=== PATIENT | male | born 1970 | race Caucasian/White ===

== ENCOUNTER 2018-05-17 12:56 | Emergency (ER) | payer SELFPAY ==
[2018-05-17] MEDS ORDERED: Albuterol/Ipratropium 3.0-0.5 MG/3 ML Neb Soln NEB ONE (13:12)
--- NOTE | 2018-05-17 14:10 | CR ---
Chest: Two views of the chest were obtained. Comparison: No prior chest x-ray. Heart size is normal. Slight tortuosity of the thoracic aorta is seen. Lungs are clear with no acute parenchymal change. Bony structures appear within normal limits for the patient's age. Impression: 1. Nothing acute is seen on two-view chest x-ray. Diagnostic code #1
--- NOTE | 2018-05-17 14:36 | EDM.PDOC ---
ED HPI GENERAL MEDICAL PROBLEM - General Chief Complaint: Respiratory Problem Stated Complaint: CHEST PAIN AND SOB Time Seen by Provider: 05/17/18 13:08 Source of Information: Reports: Patient History Limitations: Reports: No Limitations - History of Present Illness INITIAL COMMENTS - FREE TEXT/NARRATIVE: The patient presents with a cough, shortness of breath and chest tightness. He denies any fever, chills or runny nose. He also had some abdominal pain a couple days ago. He does smoke a couple packs per day. He has no nausea or vomiting. He denies swelling in his legs and pain. He has no history of OK, DVT or PE. This has been going on for a few months. Onset: Gradual Duration: Week(s): (Months) Location: Reports: Chest Quality: Reports: Other (Tightness) Severity: Moderate Improves with: Reports: None Worsens with: Reports: None Associated Symptoms: Reports: Chest Pain, Cough, Shortness of Breath. Denies: Fever/Chills, Headaches, Nausea/Vomiting - Related Data Allergies Allergy/AdvReac Type Severity Reaction Status Date / Time lorazepam [From Ativan] Allergy Hyperactivi Verified 05/17/18 13:07 ty salmon oil Allergy Rash Verified 05/17/18 13:07 Home Meds: Home Meds Albuterol [Proventil HFA] 2 puff INH Q4H PRN #1 inhaler 05/17/18 [Rx] Esomeprazole Magnesium [Nexium] 20 mg PO DAILY 05/17/18 [History] Naproxen Sodium [Aleve] 220 mg PO ASDIRECTED PRN 05/17/18 [History] predniSONE [Prednisone] 40 mg PO DAILY #10 tablet 05/17/18 [Rx] Past Medical History Cardiovascular History: Reports: SOB on Exertion Other Cardiovascular History: stress test, which was negative Respiratory History: Reports: SOB Other Respiratory History: smoker Gastrointestinal History: Reports: GERD Musculoskeletal History: Reports: Arthritis Psychiatric History: Reports: Anxiety Social & Family History - Family History Family Medical History: Noncontributory - Tobacco Use Smoking Status *Q: Current Every Day Smoker Years of Tobacco use: 25 Packs/Tins Daily: 1 - Caffeine Use Caffeine Use: Reports: Soda, Tea - Recreational Drug Use Recreational Drug Use: No ED ROS GENERAL - Review of Systems Review Of Systems: See Below Constitutional: Reports: No Symptoms HEENT: Reports: No Symptoms Respiratory: Reports: Shortness of Breath, Cough Cardiovascular: Reports: Chest Pain Endocrine: Reports: No Symptoms GI/Abdominal: Reports: No Symptoms : Reports: No Symptoms Musculoskeletal: Reports: No Symptoms ED EXAM, GENERAL - Physical Exam Exam: See Below Exam Limited By: No Limitations General Appearance: Alert, No Apparent Distress Ears: Normal External Exam Nose: Normal Inspection Head: Atraumatic, Normocephalic Neck: Normal Inspection Respiratory/Chest: No Respiratory Distress, Decreased Breath Sounds, Wheezing Cardiovascular: Regular Rate, Rhythm, No Edema, No Murmur GI/Abdominal: Soft, Non-Tender, No Organomegaly, No Mass Back Exam: Normal Inspection Extremities: Normal Inspection EKG INTERPRETATION EKG Date: 05/17/18 Time: 13:25 Rhythm: NSR Rate (Beats/Min): 81 [place]: Normal P-Wave: Present QRS: Normal ST-T: Normal QT: Normal EKG Interpretation Comments: Q waves in the anterior leads Course - Vital Signs Last Recorded V/S: Last Vital Signs Temp 97.7 F 05/17/18 12:58 Pulse 77 05/17/18 12:58 Resp 18 05/17/18 12:58 BP 145/86 H 05/17/18 12:58 Pulse Ox 99 05/17/18 13:21 - Orders/Labs/Meds Orders: Active Orders 24 hr Category Date Time Status Cardiac Monitoring [RC] . DIRECTED Care 05/17/18 13:12 Active EKG Documentation Completion [RC] STAT Care 05/17/18 13:12 Active RT Aerosol Therapy [RC] ASDIRECTED Care 05/17/18 13:13 Active Labs: Laboratory Tests 05/17/18 05/17/18 05/17/18 Range/Units 13:25 13:25 13:25 WBC 8.31 (4.23-9.07) K/mm3 RBC 5.61 (4.63-6.08) M/mm3 Hgb 16.0 (13.7-17.5) gm/L Hct 46.7 (40.1-51.0) % MCV 83.2 (79.0-92.2) fl MCH 28.5 (25.7-32.2) pg MCHC 34.3 (32.2-35.5) g/dl RDW Std Deviation 44.2 H (35.1-43.9) fL Plt Count 302 (163-337) K/mm3 MPV 9.4 (9.4-12.3) fl Neut % (Auto) 60.6 (34.0-67.9) % Lymph % (Auto) 27.0 (21.8-53.1) % [place] % (Auto) 9.4 (5.3-12.2) % Eos % (Auto) 2.4 (0.8-7.0) Baso % (Auto) 0.2 (0.1-1.2) % Neut # (Auto) 5.04 (1.78-5.38) K/mm3 Lymph # (Auto) 2.24 (1.32-3.57) K/mm3 [place] # (Auto) 0.78 (0.30-0.82) K/mm3 Eos # (Auto) 0.20 (0.04-0.54) K/mm3 Baso # (Auto) 0.02 (0.01-0.08) K/mm3 D-Dimer, Quantitative < 0.19 L (0.19-0.50) mg/L Sodium 139 (136-145) mEq/L Potassium 4.0 (3.5-5.1) mEq/L Chloride 104 (98-107) mEq/L Carbon Dioxide 22 (21-32) mEq/L Anion Gap 17.0 H (5-15) BUN 17 (7-18) mg/dL Creatinine 0.9 (0.7-1.3) mg/dL Est Cr Clr Drug Dosing 119.24 mL/min Estimated GFR (MDRD) > 60 (>60) mL/min BUN/Creatinine Ratio 18.9 H (14-18) Glucose 96 (74-106) mg/dL Calcium 10.6 H (8.5-10.1) mg/dL Total Bilirubin 0.7 (0.2-1.0) mg/dL AST 19 (15-37) U/L ALT 28 (16-63) U/L Alkaline Phosphatase 53 (46-116) U/L Troponin I < 0.017 (0.00-0.056) ng/mL C-Reactive Protein 0.9 (<1.0) mg/dL Total Protein 7.8 (6.4-8.2) g/dl Albumin 4.1 (3.4-5.0) g/dl Globulin 3.7 gm/dL Albumin/Globulin Ratio 1.1 (1-2) Meds: Medications Discontinued Medications Generic Name Dose Route Start Last Admin Trade Name Tracy PRN Reason Stop Dose Admin Albuterol/Ipratropium 3 ml 05/17/18 13:12 05/17/18 13:19 Duoneb 3.0-0.5 Mg/3 Ml NEB 05/17/18 13:13 3 ml ONETIME ONE Administration - Re-Assessments/Exams Free Text/Narrative Re-Assessment/Exam: 05/17/18 14:48 I ordered a duoneb, EKG, CXR and labs. His EKG shows a NSR with no acute changes. His CXR shows nothing acute. His CBC looks good. His D-dimer was negative. His anion gap was elevated at 17. His troponin is negative. Departure - Departure Time of Disposition: 14:55 Disposition: Home, Self-Care 01 Condition: Good Clinical Impression: Bronchitis Reactive airway disease Qualifiers: Asthma severity: mild Asthma persistence: intermittent Asthma complication type : with acute exacerbation Qualified Code(s): J45.21 - Mild intermittent asthma with (acute) exacerbation - Discharge Information *PRESCRIPTION DRUG MONITORING PROGRAM REVIEWED*: No *COPY OF PRESCRIPTION DRUG MONITORING REPORT IN PATIENT NANCY: No Prescriptions: Albuterol [Proventil HFA] 2 puff INH Q4H PRN #1 inhaler PRN Reason: Shortness Of Breath predniSONE [Prednisone] 40 mg PO DAILY #10 tablet Referrals: PCP,None [Primary Care Provider] - Roxana Boogie PA [Physician Chair Installer] - 1 Week Forms: ED Department Discharge Additional Instructions: Take prednisone 40mg daily for 5 days. Use the inhaler 2 puffs every 6 hours as needed for shortness of breath. Please return if you are worse. - My Orders Last 24 Hours: My Active Orders 05/17/18 13:12 Cardiac Monitoring [RC] . DIRECTED EKG Documentation Completion [RC] STAT 05/17/18 13:13 RT Aerosol Therapy [RC] ASDIRECTED - Assessment/Plan Last 24 Hours: My Active Orders 05/17/18 13:12 Cardiac Monitoring [RC] . DIRECTED EKG Documentation Completion [RC] STAT 05/17/18 13:13 RT Aerosol Therapy [RC] ASDIRECTED
== END 2018-05-17 15:05 | disposition home or self-care (01) ==
LOC: JD.ED 12:56
DX: J45.21 Mild intermittent asthma with (acute) exacerbation (principal); F17.210 Nicotine dependence, cigarettes, uncomplicated; K21.9 Gastro-esophageal reflux disease without esophagitis; F41.9 Anxiety disorder, unspecified; Z79.899 Other long term (current) drug therapy; Z88.8 Allergy status to other drugs, medicaments and biological substances; Z91.018 Allergy to other foods
CPT/HCPCS: 36415; 71046; 71046-26; 80053; 84484; 85025; 85379; 86140; 87804; 93005; 93010; 94640; 99283; 99285-25; J7620-GY

== ENCOUNTER 2018-09-01 15:00 | Emergency (ER) | payer BC ==
--- NOTE | 2018-09-01 16:06 | EDM.PDOC ---
ED HPI GENERAL MEDICAL PROBLEM - General Chief Complaint: Lower Extremity Injury/Pain Stated Complaint: KNEE PAIN Time Seen by Provider: 09/01/18 15:12 Source of Information: Reports: Patient History Limitations: Reports: No Limitations - History of Present Illness INITIAL COMMENTS - FREE TEXT/NARRATIVE: The patient presents with right knee pain. This all happened about 15 days ago. He was at work and he was hammering a piece of metal and some of it flew off an hit him in the right lower knee to the proximal tibia. He has been able to walk but he says sometimes when he turns it will hurt to the front of his knee. He has no other injuries. He also says sometimes he will get this weird feeling in his right lower abdomen. It is not pain but gurgling. He does not have that pain now. He also says when he puts his elbows down on a table he will feel pain at times. He has no pain now. He denies injury to his elbows. Onset: Sudden Duration: Day(s): (15) Location: Reports: Lower Extremity, Right (knee) Quality: Reports: Sharp Severity: Mild Improves with: Reports: Immobilization Worsens with: Reports: Movement (when he turns he will feel it at times) Associated Symptoms: Reports: No Other Symptoms Right Knee Pain Score (Numeric/FACES): 3 - Related Data Allergies Allergy/AdvReac Type Severity Reaction Status Date / Time lorazepam [From Ativan] Allergy Hyperactivi Verified 09/01/18 15:09 ty salmon oil Allergy Rash Verified 09/01/18 15:09 Home Meds: Home Meds Albuterol [Proventil HFA] 2 puff INH Q4H PRN #1 inhaler 05/17/18 [Rx] Naproxen Sodium [Aleve] 220 mg PO ASDIRECTED PRN 05/17/18 [History] Acetaminophen [Acetaminophen Extra Strength] 500 - 1,000 mg PO Q4H PRN 09/01/18 [History] Ranitidine [Zantac] 150 mg PO DAILY 09/01/18 [History] Past Medical History Cardiovascular History: Reports: SOB on Exertion Other Cardiovascular History: stress test, which was negative Respiratory History: Reports: SOB Other Respiratory History: smoker Gastrointestinal History: Reports: GERD Musculoskeletal History: Reports: Arthritis, Fracture Neurological History: Reports: Concussion, Migraines Psychiatric History: Reports: Addiction, Anxiety - Infectious Disease History Infectious Disease History: Reports: Chicken Pox, Measles, Mumps Social & Family History - Family History Family Medical History: Noncontributory - Tobacco Use Smoking Status *Q: Current Every Day Smoker Years of Tobacco use: 33 Packs/Tins Daily: 0.5 - Caffeine Use Caffeine Use: Reports: Energy Drinks, Soda, Tea - Recreational Drug Use Recreational Drug Use: No Review of Systems - Review of Systems Review Of Systems: See Below Constitutional: Reports: No Symptoms Eyes: Reports: No Symptoms Ears: Reports: No Symptoms Nose: Reports: No Symptoms Mouth/Throat: Reports: No Symptoms Respiratory: Reports: No Symptoms Cardiovascular: Reports: No Symptoms GI/Abdominal: Reports: No Symptoms Genitourinary: Reports: No Symptoms Musculoskeletal: Reports: Other (Right knee pain) ED EXAM, GENERAL - Physical Exam Exam: See Below Exam Limited By: No Limitations General Appearance: Alert, No Apparent Distress Ears: Normal External Exam Nose: Normal Inspection Head: Atraumatic, Normocephalic Neck: Normal Inspection Respiratory/Chest: No Respiratory Distress Extremities: Other (No pain upon palpation to the knee. Ligaments are stable. No edema noted. Ecchymosis to the anterior lower leg. Good sensation and pulses distally.) Course - Vital Signs Last Recorded V/S: Last Vital Signs Temp 98.2 F 09/01/18 15:05 Pulse 84 09/01/18 15:05 Resp 16 09/01/18 15:05 BP 139/100 H 09/01/18 15:05 Pulse Ox 96 09/01/18 15:05 - Orders/Labs/Meds Orders: Active Orders 24 hr Category Date Time Status Knee Min 4V Rt [CR] Stat Exams 09/01/18 15:28 Ordered - Re-Assessments/Exams Free Text/Narrative Re-Assessment/Exam: 09/01/18 16:02 The x-ray of his knee looks good. I will have him take antiinflammatory and ice the area. Departure - Departure Time of Disposition: 16:10 Disposition: Home, Self-Care 01 Condition: Good Clinical Impression: Contusion of right knee Qualifiers: Encounter type: initial encounter Qualified Code(s): S80.01XA - Contusion of right knee, initial encounter - Discharge Information *PRESCRIPTION DRUG MONITORING PROGRAM REVIEWED*: Not Applicable *COPY OF PRESCRIPTION DRUG MONITORING REPORT IN PATIENT NANCY: Not Applicable Referrals: Hayes Amador II, DPM [Primary Care Provider] - Additional Instructions: Ice your knee for 15 minutes 3 times per day for 2 days. Take motrin or aleve for pain. Please return if you are worse. - My Orders Last 24 Hours: My Active Orders 09/01/18 15:28 Knee Min 4V Rt [CR] Stat - Assessment/Plan Last 24 Hours: My Active Orders 09/01/18 15:28 Knee Min 4V Rt [CR] Stat
--- NOTE | 2018-09-03 10:17 | CR ---
Right knee: Four views of the right knee were obtained. Comparison: No prior right knee exam. Medial and lateral joint spaces are maintained in height. No joint effusion is seen. No fracture, dislocation or other bony abnormality is seen. Impression: 1. Nothing acute is seen on right knee exam. Diagnostic code #1
== END 2018-09-01 16:12 | disposition home or self-care (01) ==
LOC: SUPCPDRO 15:00 → JD.ED 15:00
DX: S80.01XA Contusion of right knee, initial encounter (principal); F17.210 Nicotine dependence, cigarettes, uncomplicated; W20.8XXA Other cause of strike by thrown, projected or falling object, initial encounter; Z88.8 Allergy status to other drugs, medicaments and biological substances; Z79.899 Other long term (current) drug therapy
CPT/HCPCS: 73564-26-RT; 73564-RT; 99282; 99283-25

== ENCOUNTER 2019-01-08 09:59 | Emergency (ER) | payer BC ==
--- NOTE | 2019-01-08 10:28 | EDM.PDOC ---
ED HPI GENERAL MEDICAL PROBLEM - General Chief Complaint: Respiratory Problem Stated Complaint: SOB Time Seen by Provider: 01/08/19 10:15 Source of Information: Reports: Patient History Limitations: Reports: No Limitations - History of Present Illness INITIAL COMMENTS - FREE TEXT/NARRATIVE: 48-year-old male presents the ED with acute onset of shortness of breath. He states he was okay when he got up this morning but as the days gone on in the workplace she's developed more short of breath than usual. Denies cough or sputum production. He did not have any orthopnea or PND last night. Note the patient is post AR in November of this year and had to stent placement. He is not sure which arteries were stented. He also had a valve area that sounds like it was quite stenotic and he required a endovascular valvuplasty . He just started going back to work yesterday since his injury. He went to work for 3 hours yesterday and was just back at work for a few hours this morning when he developed acute onset of dyspnea. Denies any central chest pressure pain or discomfort. Triage ECG shows sinus rhythm at 73/m. There are multiple unifocal PVCs. There is likely left atrial hypertrophy. There is T-wave inversion in leads 3 and aVF and Q waves in leads 3 and aVF compatible with an old inferior wall myocardial infarction. There is initial poor R-wave progression V1 to V3. There is a diffuse early repolarization pattern. No obvious ischemic changes. Onset: Today Onset Date: 01/08/19 Onset Time: 09:00 Duration: Minutes: Location: Reports: Chest (Acute onset of severe dyspnea.) Quality: Reports: Other Severity: Moderate (Dyspnea/shortness of breath.) Improves with: Reports: Rest Worsens with: Reports: Movement Context: Reports: Other (Spontaneous occurrence while at work this morning.). Denies: Activity, Exercise (Worse with movement.), Lifting, Sick Contact, Trauma Associated Symptoms: Reports: Shortness of Breath, Weakness. 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 (see below) (None.) - Related Data Allergies Allergy/AdvReac Type Severity Reaction Status Date / Time lorazepam [From Ativan] Allergy Hyperactivi Verified 01/08/19 10:09 ty salmon oil Allergy Rash Verified 01/08/19 10:09 Home Meds: Home Meds Albuterol [Proventil HFA] 2 puff INH Q4H PRN #1 inhaler 05/17/18 [Rx] Naproxen Sodium [Aleve] 220 mg PO ASDIRECTED PRN 05/17/18 [History] Acetaminophen [Acetaminophen Extra Strength] 500 - 1,000 mg PO Q4H PRN 09/01/18 [History] Ranitidine [Zantac] 150 mg PO DAILY 09/01/18 [History] Furosemide [Lasix] 20 mg PO DAILY #30 tab 01/08/19 [Rx] Past Medical History Cardiovascular History: Reports: AR, SOB on Exertion, Stents (2 placed in November.) Other Cardiovascular History: stress test, which was negative.. Also had a stenotic valve and required an endovascular valvuloplasty during his hospitalization November. Respiratory History: Reports: SOB Other Respiratory History: smoker Gastrointestinal History: Reports: GERD Musculoskeletal History: Reports: Arthritis, Fracture Neurological History: Reports: Concussion, Migraines Psychiatric History: Reports: Addiction, Anxiety - Infectious Disease History Infectious Disease History: Reports: Chicken Pox, Measles, Mumps Social & Family History - Family History Family Medical History: Noncontributory - Tobacco Use Smoking Status *Q: Former Smoker (Crit in November of this year.) Tobacco Use Within Last Twelve Months: Cigarettes (40 pack year history) Used Tobacco, but Quit: Yes Month/Year Tobacco Last Used: November 2018 - Caffeine Use Caffeine Use: Reports: None - Recreational Drug Use Recreational Drug Use: No ED ROS GENERAL - Review of Systems Review Of Systems: See Below Constitutional: Reports: Malaise, Fatigue. Denies: Fever, Chills HEENT: Reports: No Symptoms Respiratory: Reports: Shortness of Breath. Denies: Wheezing, Pleuritic Chest Pain, Cough, Sputum Cardiovascular: Reports: Dyspnea on Exertion (Dyspnea at rest as well.). Denies : Chest Pain, Blood Pressure Problem, Claudication, Edema, Lightheadedness, Orthopnea Endocrine: Reports: No Symptoms GI/Abdominal: Reports: No Symptoms : Reports: No Symptoms Musculoskeletal: Reports: No Symptoms Skin: Reports: No Symptoms Neurological: Reports: No Symptoms Psychiatric: Reports: No Symptoms Hematologic/Lymphatic: Reports: No Symptoms Immunologic: Reports: No Symptoms ED EXAM, GENERAL - Physical Exam Exam: See Below Exam Limited By: No Limitations General Appearance: Alert, WD/WN, Moderate Distress, Other (He is in moderate respiratory distress. Left bundle/attempted 36.3 pulse is 75 in sinus respiratory distress 26-30/m with sats of 100% on room air.) Eye Exam: Bilateral Eye: Normal Inspection Throat/Mouth: Normal Inspection, Normal Lips, Normal Oropharynx Head: Atraumatic, Other Neck: Normal Inspection, Supple, Non-Tender, Full Range of Motion. No: Lymphadenopathy (L), Lymphadenopathy (R) Respiratory/Chest: Normal Breath Sounds (In the anterior chest. No adventitial sounds noted.), No Accessory Muscle Use, Decreased Breath Sounds (Decreased breath sounds to both lower lung manjarrez worse on the right side however compared to the left.). No: Rales, Rhonchi, Wheezing Cardiovascular: Normal Peripheral Pulses, Regular Rate, Rhythm, No Edema, No Gallop, No Murmur, No Rub Peripheral Pulses: 3+: Posterior Tibial (L), Posterior Tibial (R), Dorsalis Pedis (L), Dorsalis Pedis (R) GI/Abdominal: Normal Bowel Sounds, Soft, Non-Tender, No Organomegaly, No Abnormal Bruit, No Mass, Pelvis Stable Back Exam: Normal Inspection, Full Range of Motion. No: CVA Tenderness (L), CVA Tenderness (R) Extremities: Normal Inspection, Normal Range of Motion, Non-Tender, No Pedal Edema Neurological: Alert, Oriented, CN II-XII Intact, Normal Cognition Psychiatric: Normal Mood, Anxious (Mildly anxious.) Skin Exam: Warm, Dry, Intact, Normal Color, No Rash EKG INTERPRETATION EKG Date: 01/08/19 Time: :09 Rhythm: NSR Rate (Beats/Min): 73 (Frequent unifocal PVCs.) [place]: LAD-Left [place] Deviation (Left axis deviation -30.) P-Wave: Enlarged (Consider left atrial enlargement.) QRS: Other (There is a Q-wave in V1 and initial poor R-wave progression. There is a Q-wave in lead 3 and aVF) ST-T: Other (compatible with an old inferior wall myocardial infarction. T-wave inversion leads 3 and aVF. Diffuse early repolarization pattern appreciated.) QT: Normal EKG Interpretation Comments: Abnormal ECG with no acute ischemic changes appreciated Course - Vital Signs Last Recorded V/S: Last Vital Signs Temp 36.3 C 01/08/19 10:11 Pulse 75 01/08/19 10:11 Resp 26 H 01/08/19 10:11 BP 113/78 01/08/19 10:11 Pulse Ox 100 01/08/19 10:11 - Orders/Labs/Meds Orders: Active Orders 24 hr Category Date Time Status EKG 12 Lead [EKG Documentation Completion] [RC] STAT Care 01/08/19 10:28 Active Labs: Laboratory Tests 01/08/19 01/08/19 01/08/19 Range/Units 10:15 10:15 10:15 WBC 9.88 H (4.23-9.07) K/mm3 RBC 5.08 (4.63-6.08) M/mm3 Hgb 15.2 (13.7-17.5) gm/dl Hct 42.1 (40.1-51.0) % MCV 82.9 D (79.0-92.2) fl MCH 29.9 (25.7-32.2) pg MCHC 36.1 H (32.2-35.5) g/dl RDW Std Deviation 41.9 (35.1-43.9) fL Plt Count 266 D (163-337) K/mm3 MPV 9.6 (9.4-12.3) fl Neut % (Auto) 52.6 (34.0-67.9) % Lymph % (Auto) 32.9 (21.8-53.1) % [place] % (Auto) 10.6 (5.3-12.2) % Eos % (Auto) 3.5 (0.8-7.0) Baso % (Auto) 0.4 (0.1-1.2) % Neut # (Auto) 5.19 (1.78-5.38) K/mm3 Lymph # (Auto) 3.25 (1.32-3.57) K/mm3 [place] # (Auto) 1.05 H (0.30-0.82) K/mm3 Eos # (Auto) 0.35 (0.04-0.54) K/mm3 Baso # (Auto) 0.04 (0.01-0.08) K/mm3 PT 10.7 (9.7-12.0) SECONDS INR 0.98 APTT (22-31) SECONDS D-Dimer, Quantitative (0.19-0.50) mg/L Puncture Site ABG pH (7.35-7.45) ABG pCO2 (35.0-45.0) mmHg ABG pO2 (80.0-100.0) mmHg ABG HCO3 (22.0-26.0) meq/L ABG O2 Saturation (96.0-97.0) % ABG Base Excess (-2-2.0) [place] Test A-a Gradient mmHg O2 Delivery Device Oxygen Flow Rate FiO2 (21.00-100.00) % Sodium 139 (136-145) mEq/L Potassium 3.9 (3.5-5.1) mEq/L Chloride 104 (98-107) mEq/L Carbon Dioxide 25 (21-32) mEq/L Anion Gap 13.9 (5-15) BUN 21 H (7-18) mg/dL Creatinine 1.2 (0.7-1.3) mg/dL Est Cr Clr Drug Dosing 86.00 mL/min Estimated GFR (MDRD) > 60 (>60) mL/min BUN/Creatinine Ratio 17.5 (14-18) Glucose 91 (74-106) mg/dL Calcium 10.5 H (8.5-10.1) mg/dL Magnesium 2.0 (1.8-2.4) mg/dl Total Bilirubin 0.7 (0.2-1.0) mg/dL AST 14 L (15-37) U/L ALT 32 (16-63) U/L Alkaline Phosphatase 55 (46-116) U/L CK-MB (CK-2) 2.0 (0-3.6) ng/ml Troponin I < 0.017 (0.00-0.056) ng/mL C-Reactive Protein 0.8 (<1.0) mg/dL NT-Pro-B Natriuret Pep (0-125) pg/mL Total Protein 7.9 (6.4-8.2) g/dl Albumin 4.1 (3.4-5.0) g/dl Globulin 3.8 gm/dL Albumin/Globulin Ratio 1.1 (1-2) 10/08/19 10/08/19 10/08/19 Range/Units 10:15 10:15 10:15 WBC (4.23-9.07) K/mm3 RBC (4.63-6.08) M/mm3 Hgb (13.7-17.5) gm/dl Hct (40.1-51.0) % MCV (79.0-92.2) fl MCH (25.7-32.2) pg MCHC (32.2-35.5) g/dl RDW Std Deviation (35.1-43.9) fL Plt Count (163-337) K/mm3 MPV (9.4-12.3) fl Neut % (Auto) (34.0-67.9) % Lymph % (Auto) (21.8-53.1) % [place] % (Auto) (5.3-12.2) % Eos % (Auto) (0.8-7.0) Baso % (Auto) (0.1-1.2) % Neut # (Auto) (1.78-5.38) K/mm3 Lymph # (Auto) (1.32-3.57) K/mm3 [place] # (Auto) (0.30-0.82) K/mm3 Eos # (Auto) (0.04-0.54) K/mm3 Baso # (Auto) (0.01-0.08) K/mm3 PT (9.7-12.0) SECONDS INR APTT 24 (22-31) SECONDS D-Dimer, Quantitative < 0.19 L (0.19-0.50) mg/L Puncture Site ABG pH (7.35-7.45) ABG pCO2 (35.0-45.0) mmHg ABG pO2 (80.0-100.0) mmHg ABG HCO3 (22.0-26.0) meq/L ABG O2 Saturation (96.0-97.0) % ABG Base Excess (-2-2.0) [place] Test A-a Gradient mmHg O2 Delivery Device Oxygen Flow Rate FiO2 (21.00-100.00) % Sodium (136-145) mEq/L Potassium (3.5-5.1) mEq/L Chloride (98-107) mEq/L Carbon Dioxide (21-32) mEq/L Anion Gap (5-15) BUN (7-18) mg/dL Creatinine (0.7-1.3) mg/dL Est Cr Clr Drug Dosing mL/min Estimated GFR (MDRD) (>60) mL/min BUN/Creatinine Ratio (14-18) Glucose (74-106) mg/dL Calcium (8.5-10.1) mg/dL Magnesium (1.8-2.4) mg/dl Total Bilirubin (0.2-1.0) mg/dL AST (15-37) U/L ALT (16-63) U/L Alkaline Phosphatase (46-116) U/L CK-MB (CK-2) (0-3.6) ng/ml Troponin I (0.00-0.056) ng/mL C-Reactive Protein (<1.0) mg/dL NT-Pro-B Natriuret Pep 242 H (0-125) pg/mL Total Protein (6.4-8.2) g/dl Albumin (3.4-5.0) g/dl Globulin gm/dL Albumin/Globulin Ratio (1-2) 01/08/19 Range/Units 10:50 WBC (4.23-9.07) K/mm3 RBC (4.63-6.08) M/mm3 Hgb (13.7-17.5) gm/dl Hct (40.1-51.0) % MCV (79.0-92.2) fl MCH (25.7-32.2) pg MCHC (32.2-35.5) g/dl RDW Std Deviation (35.1-43.9) fL Plt Count (163-337) K/mm3 MPV (9.4-12.3) fl Neut % (Auto) (34.0-67.9) % Lymph % (Auto) (21.8-53.1) % [place] % (Auto) (5.3-12.2) % Eos % (Auto) (0.8-7.0) Baso % (Auto) (0.1-1.2) % Neut # (Auto) (1.78-5.38) K/mm3 Lymph # (Auto) (1.32-3.57) K/mm3 [place] # (Auto) (0.30-0.82) K/mm3 Eos # (Auto) (0.04-0.54) K/mm3 Baso # (Auto) (0.01-0.08) K/mm3 PT (9.7-12.0) SECONDS INR APTT (22-31) SECONDS D-Dimer, Quantitative (0.19-0.50) mg/L Puncture Site Rt radial ABG pH 7.40 (7.35-7.45) ABG pCO2 34.7 L (35.0-45.0) mmHg ABG pO2 79.0 L (80.0-100.0) mmHg ABG HCO3 20.9 L (22.0-26.0) meq/L ABG O2 Saturation 94.7 L (96.0-97.0) % ABG Base Excess -2.8 L (-2-2.0) [place] Test Positive A-a Gradient 28 mmHg O2 Delivery Device Room air Oxygen Flow Rate 0.0 FiO2 21.00 (21.00-100.00) % Sodium (136-145) mEq/L Potassium (3.5-5.1) mEq/L Chloride (98-107) mEq/L Carbon Dioxide (21-32) mEq/L Anion Gap (5-15) BUN (7-18) mg/dL Creatinine (0.7-1.3) mg/dL Est Cr Clr Drug Dosing mL/min Estimated GFR (MDRD) (>60) mL/min BUN/Creatinine Ratio (14-18) Glucose (74-106) mg/dL Calcium (8.5-10.1) mg/dL Magnesium (1.8-2.4) mg/dl Total Bilirubin (0.2-1.0) mg/dL AST (15-37) U/L ALT (16-63) U/L Alkaline Phosphatase (46-116) U/L CK-MB (CK-2) (0-3.6) ng/ml Troponin I (0.00-0.056) ng/mL C-Reactive Protein (<1.0) mg/dL NT-Pro-B Natriuret Pep (0-125) pg/mL Total Protein (6.4-8.2) g/dl Albumin (3.4-5.0) g/dl Globulin gm/dL Albumin/Globulin Ratio (1-2) Meds: Medications Discontinued Medications Generic Name Dose Route Start Last Admin Trade Name Freq PRN Reason Stop Dose Admin Furosemide 40 mg 01/08/19 10:52 01/08/19 11:00 Lasix IVPUSH 01/08/19 10:53 40 mg NOW ONE Administration Sodium Chloride 1,000 mls @ 75 mls/hr 01/08/19 10:30 01/08/19 10:32 Normal Saline IV 75 mls/hr ASDIRECTED [facility] Administration - Radiology Interpretation Free Text/Narrative:: 48-year-old male presents to the ED with acute onset of dyspnea. Patient had a myocardial infarction in November of this year required 2 stent placed but not sure which vessels were stented. He also had a endovascular valvuloplasty presumably on the aortic valve but this information is not available to us. He is currently on no anticoagulants. He just started back to work yesterday for 3 hours and he supposed to be working 4 hours per day as he gets back into the work force. States at work this morning about 3 and outgoing started developing shortness of breath which is intensified. His O2 sats are 100% on room air but he is working hard to get it with respect rate of 26-30/m. Plan ABGs will be done. One view chest x-ray to be done. Labs will include a d-dimer. - Re-Assessments/Exams Free Text/Narrative Re-Assessment/Exam: 01/08/19 10:51 chest x-ray reveals normal cardiac silhouette. There is a diffuse vascular congestion pattern. No effusions. No pneumothorax. Patient will be given Lasix 40 mg IV. 01/08/19 11:41 White count is 9.88. Auto differential shows 52% neutrophils. Hemoglobin is 15.2 with hematocrit of 42.1. Platelet count 266,000. PT is 10.7 with an INR of 0.98. PTT is 24 with a d-dimer of less than 0.19. Blood gases revealed a pH of 7.40. PCO2 of 34.7. PO2 was down to 79.0. Bicarbonate 20.9 O2 sats 94.7%. This was on room air. Sodium 139 with potassium of 3.9. Chloride 104 the bicarbonate 25. Anion gap is 13.9. BUN was 21 with a creatinine of 1.2. GFR is greater than 60. Glucose is 91 calcium is 10.5. Magnesium is 2.0. Liver function is normal. CK-MB fraction is 2.0 troponin I is less than 0.017. C- reactive protein is 0.8. BNP mildly elevated at 242 normal lab is up to 125.. Total protein is 7.9 with an albumin fraction of 4.1. Therefore I believe his shortness of breath was a combination of decompensation as he has not been able to work for the last 8 weeks. Also low-grade congestive failure. I will place him on Lasix 20 mg once daily every morning. He should have an echocardiogram to see how well his heart is functioning after stent placement and valvuloplasty. 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 He may return to work tomorrow and see how things go. Off the rest of today. Departure - Departure Time of Disposition: 11:49 Disposition: Home, Self-Care 01 Condition: Fair Clinical Impression: Acute dyspnea, Mild congestive heart failure - Discharge Information *PRESCRIPTION DRUG MONITORING PROGRAM REVIEWED*: Not Applicable *COPY OF PRESCRIPTION DRUG MONITORING REPORT IN PATIENT NANCY: Not Applicable Prescriptions: Furosemide [Lasix] 20 mg PO DAILY #30 tab Instructions: Shortness of Breath, Adult Referrals: Alyssia Bazzi PA-C [Primary Care Provider] - Forms: ED Department Discharge Additional Instructions: Evaluation the emergency room this morning in regards to the development of acute onset of severe shortness of breath while at work this morning. It appears that the shortness of breath was a combination of being out of shape and deconditioned due to recent illness and off out of the work place for the last 8 weeks. Labs revealed that there is a small amount accumulation of fluid in your lungs contributing to her shortness of breath as well. Since called mild heart failure. You are given Lasix 40 mg intravenously in the emergency department. You should take a tablet 20 mg once daily every morning to prevent further accumulation of fluid. Suggest contacting her yarder boss in perhaps having a earlier visit than one year. At follow-up echocardiogram would be in order to make sure the heart function is normal. May return to work tomorrow part-time duties as planned. It appears it will take some time to get back in shape for the type of work you are doing. - My Orders Last 24 Hours: My Active Orders 01/08/19 10:28 EKG 12 Lead [EKG Documentation Completion] [RC] STAT - Assessment/Plan Last 24 Hours: My Active Orders 01/08/19 10:28 EKG 12 Lead [EKG Documentation Completion] [RC] STAT
[2019-01-08] MEDS ORDERED: Sodium Chloride 0.9% 1,000 ML IV SCH (10:30)
[2019-01-08] MEDS ORDERED: Furosemide 40 MG/4 ML VIAL IVPUSH ONE (10:52)
--- NOTE | 2019-01-08 11:23 | CR ---
Chest: Portable view of the chest was obtained. Comparison: Previous chest x-ray of 11/17/18. Heart size generous but accentuated from portable technique. Tortuous thoracic aorta is seen. Lungs are clear. Bony structures are grossly intact. Impression: 1. Nothing acute is identified on portable chest x-ray. Diagnostic code #2
== END 2019-01-08 12:20 | disposition home or self-care (01) ==
LOC: JD.ED 09:59
DX: I50.9 Heart failure, unspecified (principal); I25.2 Old myocardial infarction; K21.9 Gastro-esophageal reflux disease without esophagitis; M19.90 Unspecified osteoarthritis, unspecified site; Z87.891 Personal history of nicotine dependence; Z95.5 Presence of coronary angioplasty implant and graft; Z88.8 Allergy status to other drugs, medicaments and biological substances; Z91.018 Allergy to other foods; Z79.899 Other long term (current) drug therapy
CPT/HCPCS: 36415; 36600; 71045; 80053; 82553; 82803; 83735; 83880; 84484; 85025; 85379; 85610; 85730; 86140; 93005; 96361; 96374; 99285; J1940; J7040